=== PATIENT | female | born 1995 | race Caucasian/White ===

== ENCOUNTER 2021-12-06 20:20 | Inpatient (IN) | payer MEDICAID ==
[~2021-12-06] VITALS: Ht 167.6 cm; Wt 70.9 kg
[2021-12-07 11:03] VITALS: BP 131/92
[2021-12-07] MEDS ORDERED: mag hydrox/Alum hydrox/simeth 30ml oral suspension PO PRN (11:15)
[2021-12-07] MEDS ORDERED: acetaminophen 325mg tablet PO PRN (11:15)
[2021-12-07] MEDS ORDERED: magnesium hydroxide 30ml (MOM) UD suspension PO PRN (11:15)
[2021-12-07] MEDS ORDERED: loperamide 2mg capsule PO PRN (11:15)
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
[2021-12-07] MEDS ORDERED: LORazepam 1 MG tablet PO ONE ×2 (14:15→14:45)
[2021-12-07] MEDS ORDERED: METH-603 PO (19:33)
[2021-12-07] MEDS ORDERED: methadone 10mg tablet PO ONE (19:35)
[2021-12-07 19:49] VITALS: BP 141/81
[2021-12-07] MEDS: traZODone 50mg tablet PO PRN (22:20)
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
[2021-12-08 06:58] LABS: CHOL/HDL RATIO 3.7 (0.00-4.99); CHOLESTEROL 166 MG/DL (0-200); HDL CHOLESTEROL 45 MG/DL (35-60); LDL CHOLESTEROL 96 MG/DL (50-100); TRIGLYCERIDES 93 MG/DL (20-135)
[2021-12-08 07:17] LABS: HEMOGLOBIN A1C 5.6 % (4.5-6.2)
[2021-12-08 08:00] VITALS: BP 116/80
[2021-12-08] MEDS: cloNIDine 0.1 mg tablet PO SCH ×2 (08:19→13:30)
[2021-12-08] MEDS: busPIRone 5mg tablet PO SCH ×3 (08:19→20:23)
[2021-12-08] MEDS: acetaminophen 325mg tablet PO PRN (11:18)
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
[2021-12-08] MEDS ORDERED: methadone 10mg tablet PO ONE (18:55)
[2021-12-08 20:00] VITALS: BP 117/95
[2021-12-08] MEDS: traZODone 50mg tablet PO PRN ×2 (20:23→21:41)
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
[2021-12-09 08:22] VITALS: BP_SYST 83; BP_SYST 86; BP_DIAS 52; BP_DIAS 54
[2021-12-09 08:40] VITALS: BP 110/60
[2021-12-09] MEDS: busPIRone 5mg tablet PO SCH ×3 (08:47→20:08)
[2021-12-09] MEDS: cloNIDine 0.1 mg tablet PO SCH ×2 (08:48→13:30)
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
--- NOTE | 2021-12-09 11:25 | NUR ---
Initial: Pt with h/o bipolar disorder presents with SI on a 5150 hold. Pt currently on a vegetarian diet and overall eating well with mostly 100% PO intake however documented to have refused dinner 12/08. LBM 12/07, documented as small. Pt s/p KUB today with findings of "relative generalized abundance of colonic stool. No evidence of gastrointestinal obstruction" per report. Noted pt with PRN MoM available though not documented to be given. D/w dietary to send prunes and prune juice with next meal to assist with bowel regularity, though pt would benefit from routine bowel care. Will continue to follow and monitor need for further nutrition intervention. Recommendations: 1) Continue vegetarian diet 2) Routine bowel care; utilize PRN bowel care given constipation 3) Weekly scaled weights Addendum: 12/09/21 at [address] Amended: Links added.
--- NOTE | 2021-12-09 12:28 | NUR ---
Pt. reports no bowl movement for approximately 7 days. KUB was ordered and showed relative generalized abundance of colonic stool. No evidence of gastrointestinal obstruction. Pt. is refusing prune juice of MOM. This was endorsed to Dr. Hess who gave orders to administer Miralax X4 days, hold if pt. experiencing diarrhea.
[2021-12-09 13:25] VITALS: BP 110/60
[2021-12-09] MEDS: polyethylene glycol 3350 17gm powd pack PO SCH (13:30)
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
[2021-12-09] MEDS: methadone 10mg tablet PO SCH (18:03)
[2021-12-09 19:58] VITALS: BP 95/65
[2021-12-09] MEDS: traZODone 50mg tablet PO PRN (20:08)
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
[2021-12-10 08:00] VITALS: BP 110/60
[2021-12-10] MEDS: cloNIDine 0.1 mg tablet PO SCH ×2 (08:07→13:34)
[2021-12-10] MEDS: busPIRone 5mg tablet PO SCH ×3 (08:07→20:03)
[2021-12-10] MEDS: buPROPion 75mg tablet PO SCH ×2 (08:07→12:52)
[2021-12-10] MEDS: acetaminophen 325mg tablet PO PRN (08:20)
--- NOTE | 2021-12-10 13:35 | NUR ---
Held pt's scheduled afternoon dose of Clonidine 0.1 mg r/t decreased BP. Will endorse to Dr. Hess.
[2021-12-10 13:36] VITALS: BP 91/50
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
--- NOTE | 2021-12-10 15:19 | NUR ---
Left message for Cinthia's , Manuelito (ph# [phone]) requesting a call back to gather additional information. RAYSA Mckeon
[2021-12-10] MEDS: methadone 10mg tablet PO SCH (16:43)
[2021-12-10 19:00] VITALS: BP 109/66
--- NOTE | 2021-12-10 19:10 | NUR ---
Cinthia on the phone with her . pt asked if she was being discharged tomorrow so she could go to [employer]ec[employer] with her . told her i would ask the charge to look into it. pt seemed calm and answering questiopns her asked her on the phone.
--- NOTE | 2021-12-10 19:15 | NUR ---
noted pt had hair shampoo bottles antiperspirant, etc line up neatly in straight line row with 2cm separation between each bottle on her bed.
[2021-12-10] MEDS: polyethylene glycol 3350 17gm powd pack PO SCH ×2 (20:03→21:00)
[2021-12-10] MEDS: traZODone 50mg tablet PO PRN ×2 (20:03→23:52)
--- NOTE | 2021-12-10 20:05 | NUR ---
pt given Hs medications to take and took them. no complaints at this time. Then asked afterwards if she could take a shower. pt given towel etc and went to the shower.
--- NOTE | 2021-12-10 23:10 | NUR ---
noted on the bed turned self appears drowsy. was awakened by roommate in the bathroom.
--- NOTE | 2021-12-10 23:24 | NUR ---
sitting up in bed reading. no complaints.
--- NOTE | 2021-12-10 23:55 | NUR ---
medicated with another dose of trazodone for difficulty sleeping.
--- NOTE | 2021-12-11 04:55 | NUR ---
resting no changes.
[2021-12-11 08:00] VITALS: BP 85/51
[2021-12-11] MEDS: cloNIDine 0.1 mg tablet PO SCH ×2 (08:30→13:50)
[2021-12-11] MEDS: buPROPion 75mg tablet PO SCH ×2 (08:30→13:50)
[2021-12-11] MEDS: busPIRone 5mg tablet PO SCH ×3 (08:30→19:55)
--- NOTE | 2021-12-11 16:34 | NUR ---
Nursing Progress Note Problem : Patient is a 26 y/o female on a 5150 for DTS, transferred from [facility] to [facility]. Per 5150, pt reported daily suicidal thoughts for the last two weeks of wanting to drive her car off a bridge and into the water. She experiences daily anger outbursts and SI. Hx of Bipolar D/O and has not taken meds for some time. Interventions : Maintained a safe and supportive environment, ensured contract for safety, provided active listening and positive encouragement, encouraged participation on the unit, and maintained Q 15min safety checks. Response : Received pt. sleeping w/o distress in bed at the beginning of the shift. Pt woke and was cooperative with vitals and AM meds. Pt ate meals well today. She was visited this morning by . Pt ruminated in AM about going home the said I could go home today or tomorrow morning, and I want to go home now. Pt guarded and isolated to room with long naps. Pt is anxious and irritated about not being discharged today. Makes frequent phone calls. Denies current SI. Plan : Per Dr. Hess, pt. continues to be a high risk discharge and requires a safe and supportive environment.
[2021-12-11] MEDS: methadone 10mg tablet PO SCH (17:02)
--- NOTE | 2021-12-11 19:00 | NUR ---
pt going through papers reading them calm collected stated she had a great visit with her today and even got to hold hands with him. said she wants to go home and go to scientology tomorrow. We talked about what she needed for that to happen and that she might want to consider a rehab to stay off the drugs completely as its not healthy for her or the family to get out stay off then go back on again like she has been doing. She said she would thing about it.
[2021-12-11] MEDS: polyethylene glycol 3350 17gm powd pack PO SCH (19:53)
[2021-12-11] MEDS: traZODone 50mg tablet PO PRN (19:53)
--- NOTE | 2021-12-11 19:55 | NUR ---
pt took her BuSpar, miralax with juice and requested her trazodone for sleep denied headache or any pain tonight. stated she wanted a shower later and told her we would set that up for her.
[2021-12-11 20:00] VITALS: BP 94/48
--- NOTE | 2021-12-11 22:00 | NUR ---
pt fell asleep after taking her shower, appears comfortable.
--- NOTE | 2021-12-11 23:30 | NUR ---
up to bathroom then went right back to bed.
--- NOTE | 2021-12-12 01:13 | NUR ---
resting without changes.
--- NOTE | 2021-12-12 02:15 | NUR ---
awoke walking in the [place] asked for her second dose of trazodone to go back to bed.
[2021-12-12] MEDS: traZODone 50mg tablet PO PRN (02:16)
--- NOTE | 2021-12-12 02:35 | NUR ---
complaint of right upper back tooth wisdom pain 01/16 said she's had a hole in it a year after having her son and happened eating pizza. she said thats why she is trying to get out of here so her can get her tooth fixed at the dentist and she's trying to get the ball rolling to get her kids back.
[2021-12-12] MEDS: acetaminophen 325mg tablet PO PRN (02:37)
[2021-12-12] MEDS: busPIRone 5mg tablet PO SCH (07:52)
[2021-12-12] MEDS: buPROPion 75mg tablet PO SCH (07:52)
[2021-12-12] MEDS: cloNIDine 0.1 mg tablet PO SCH ×2 (07:52→07:54)
[2021-12-12 08:00] VITALS: BP 102/50
[2021-12-12] MEDS ORDERED: DOL10T PO (09:18)
[2021-12-12] MEDS ORDERED: BUPR-297 PO (09:18)
[2021-12-12] MEDS ORDERED: BUSP5TAB26 PO (09:18)
[2021-12-12] MEDS ORDERED: CLON0.1T2 PO (09:18)
[2021-12-12] MEDS ORDERED: TRAZ-251 PO (09:18)
[2021-12-12] MEDS ORDERED: LEVO25TA7 PO (09:21)
--- NOTE | 2021-12-12 09:45 | NUR ---
shoe coverer Note. Patient discharged home to . Patient calm and cooperative, No distress observed. Patient denies suicidal ideation and patient states she feels ready to go home. Patient has all her belongings. Patient ambulatory, steady gait with SOWMYA Rose and met in [facility]. Patient did not have wounds.
== END 2021-12-12 10:13 | disposition home or self-care (01) | DRG 753 ==
LOC: ADULT MH 20:20
PROVIDERS: ADMIT Psychiatry & Neurology Psychiatry; ATTEND Psychiatry & Neurology Psychiatry
DX: F31.9 Bipolar disorder, unspecified (principal); R45.851 Suicidal ideations; F11.20 Opioid dependence, uncomplicated; F15.90 Other stimulant use, unspecified, uncomplicated; F90.9 Attention-deficit hyperactivity disorder, unspecified type; J45.909 Unspecified asthma, uncomplicated; R45.86 Emotional lability; F41.9 Anxiety disorder, unspecified; Z82.3 Family history of stroke; Z82.49 Family history of ischemic heart disease and other diseases of the circulatory system; Z83.3 Family history of diabetes mellitus; Z83.49 Family history of other endocrine, nutritional and metabolic diseases; Z98.891 History of uterine scar from previous surgery; Z91.041 Radiographic dye allergy status; Z79.899 Other long term (current) drug therapy
CPT/HCPCS: 36415; 74018; 80061; 83036; 84443; 87081